=== PATIENT | male | born 1945 | race Caucasian/White ===

== ENCOUNTER 2016-09-18 12:59 | Inpatient (IN) | payer OTHER ==
[~2016-09-18] VITALS: Ht 170.2 cm; Wt 104.3 kg
[2016-09-18 13:16] VITALS: BP 156/78; PULSE 103; RESP 18; TEMP 100.7; O2SAT 96
[2016-09-18] MEDS ORDERED: NACL 0.9% 1,000 ML IV SCH (13:46)
[2016-09-18] MEDS ORDERED: VANCOMYCIN HCL 1,000 MG in D5W 250 ML IV ONE (14:00)
[2016-09-18] MEDS ORDERED: ACETAMINOPHEN 325 MG TABLET PO ONE (14:00)
[2016-09-18] MEDS ORDERED: PIPERACILLIN/TAZO 3.38 GM in D5W 50 ML IV ONE (14:00)
[2016-09-18] MEDS ORDERED: PIPERACILLIN/TAZOBACTAM 3.375 GM/VIAL (ZOSYN) IV ONE ×2 (14:18→15:05)
[2016-09-18] MEDS ORDERED: VANCOMYCIN HCL 1000 MG/VIAL IV ONE (14:19)
[2016-09-18 14:54] LABS: BASOPHILS # (AUTO) 0.2 K/uL (0.0-0.2); BASOPHILS % (AUTO) 2.5 % (0.0-2.0); EOSINOPHILS % (AUTO) 0.1 % (0.0-4.0); HEMATOCRIT 33.5 % (36-54); HEMOGLOBIN 11.2 g/dL (14.0-18.0); LYMPHOCYTES # (AUTO) 0.4 K/uL (1.0-5.5); LYMPHOCYTES % (AUTO) 6.3 % (20.5-51.5); MEAN CORPUSCULAR HEMOGLOBIN 29 pg (27-31); MEAN CORPUSCULAR HGB CONC 34 % (32-36); MEAN CORPUSCULAR VOLUME 86 fL (79.0-98.0); MONOCYTES # (AUTO) 0.6 K/uL (0.0-1.0); MONOCYTES % (AUTO) 8.3 % (1.7-9.3); NEUTROPHILS # (AUTO) 5.5 K/uL (1.8-7.7); NEUTROPHILS % (AUTO) 82.8 % (40.0-70.0); PLATELET COUNT (AUTO) 131 K/uL (130-430); RED BLOOD CELL COUNT(AUTO) 3.89 MIL/uL (4.2-6.2); RED CELL DISTRIBUTION WIDTH 15.5 % (9.0-15.0); WHITE BLOOD COUNT (AUTO) 6.7 K/uL (4.8-10.8)
[2016-09-18 14:55] LABS: PROTHROMBIN TIME 11.1 SECS (9.5-12.5)
[2016-09-18 15:04] LABS: CALCIUM 9.2 mg/dL (8.4-11.0); CREATININE 1.42 mg/dL (0.55-1.30); POTASSIUM 4.8 mmol/L (3.5-5.1)
[2016-09-18 15:09] LABS: ALBUMIN 3.8 g/dL (3.4-4.8); TOTAL BILIRUBIN 0.7 mg/dL (0.0-1.0); TOTAL PROTEIN, SERUM 7.8 g/dL (6.4-8.3)
[2016-09-18] MEDS ORDERED: D5NS 1,000 ML IV SCH (17:00)
[2016-09-18 17:07] LABS: BILIRUBIN,URINE NEGATIVE (NEGATIVE); BLOOD, URINE NEGATIVE (NEGATIVE); CLARITY/URINE CLEAR (CLEAR); COLOR,URINE YELLOW (YELLOW); GLUCOSE,URINE NEGATIVE (NEGATIVE); KETONES,URINE TRACE (NEGATIVE); LEUKOCYTE ESTERASE ,URINE NEGATIVE (NEGATIVE); NITRITE, URINE NEGATIVE (NEGATIVE); PH,URINE 5.5 (5.0-8.0); PROTEIN URINE NEGATIVE (NEGATIVE); UROBILINOGEN,URINE 0.2 (0.2-1.0)
[2016-09-18 17:21] VITALS: BP 133/68; PULSE 94; RESP 20; TEMP 98.3; O2SAT 93
[2016-09-18] MEDS ORDERED: ALBU8.5H8 INH (19:00)
[2016-09-18] MEDS ORDERED: AMLO10TA88 PO (19:00)
[2016-09-18] MEDS ORDERED: LISI40TA4 PO (19:00)
[2016-09-18] MEDS ORDERED: TERA10CA47 PO (19:00)
[2016-09-18] MEDS ORDERED: HYDR25TA4 PO (19:00)
[2016-09-18] MEDS ORDERED: METO-442 PO (19:00)
[2016-09-18] MEDS ORDERED: ALBUTEROL SULFATE 0.083% 2.5 MG/3 ML VIAL.NEB INH PRN (19:15)
[2016-09-18] MEDS ORDERED: IPRATROPIUM BROM 0.5 MG/2.5 ML VIAL.NEB (ATROVENT) INH PRN (19:15)
[2016-09-18 19:26] VITALS: BP 133/68; PULSE 94
[2016-09-18 19:40] VITALS: BP 174/118; PULSE 67; RESP 22; TEMP 99; O2SAT 96
[2016-09-18] MEDS: cefTRIAXone 1 GM IVPB PREMIX 50 ML IV SCH (20:15)
[2016-09-18] MEDS: METOPROLOL TARTRATE 50 MG TABLET PO SCH (20:15)
[2016-09-18] MEDS: LISINOPRIL 20 MG TABLET PO SCH (20:16)
[2016-09-18] MEDS ORDERED: LORazepam 2 MG/ML VIAL IVP ONE (21:15)
[2016-09-18] MEDS ORDERED: DEXTROSE 50% JECT 50 ML DISP.SYRIN IVP PRN (21:15)
[2016-09-18] MEDS: NACL 0.9% 1,000 ML IV SCH (21:32)
[2016-09-19] VITALS (8 sets, daily range): BP systolic 110–158; BP diastolic 62–79; PULSE 77–87; RESP 18–19; TEMP 98–101.4; O2SAT 92–94
[2016-09-19] MEDS: ALBUTEROL SULFATE 0.083% 2.5 MG/3 ML VIAL.NEB INH SCH ×6 (03:00→23:00)
[2016-09-19] MEDS: IPRATROPIUM BROM 0.5 MG/2.5 ML VIAL.NEB (ATROVENT) INH SCH ×6 (03:00→23:00)
[2016-09-19] MEDS ORDERED: amLODIPine BESYLATE 10 MG TABLET PO SCH (09:00)
[2016-09-19] MEDS: LISINOPRIL 20 MG TABLET PO SCH ×2 (09:34→21:00)
[2016-09-19] MEDS: HYDROCHLOROTHIAZIDE 25 MG TABLET (HCTZ) PO SCH (09:37)
[2016-09-19] MEDS: METOPROLOL TARTRATE 50 MG TABLET PO SCH ×2 (09:38→22:27)
[2016-09-19] MEDS: NACL 0.9% 1,000 ML IV SCH ×2 (09:43→19:50)
[2016-09-19 09:52] LABS: ABG TOTAL HEMOGLOBIN 11.3 G/dL (12.0-18.0); BLOOD GAS BASE EXCESS -3.8 mmol/L (-3.0-3.0); BLOOD GAS COHb% 0.4 % (0.5-1.5); BLOOD GAS HHB 8.9 % (0.0-6.0); BLOOD GAS PH 7.385 (7.350-7.450); BLOOD O2Hb% 90.3 % (94.0-97.0)
[2016-09-19] MEDS ORDERED: methylPREDNISolone SOD SUCC/PF 62.5 MG/ML VIAL IVP ONE (10:00)
[2016-09-19] MEDS ORDERED: TERAZOSIN HCL 5 MG CAPSULE (HYTRIN) PO ONE (10:00)
[2016-09-19] MEDS: OSELTAMIVIR PHOSPHATE 75 MG CAPSULE PO SCH ×2 (10:49→22:26)
[2016-09-19] MEDS ORDERED: HALOPERIDOL LACTATE 5 MG/ML VIAL IVP PRN (12:00)
[2016-09-19] MEDS ORDERED: ACETAMINOPHEN 650 MG/20.3 ML UDC GT PRN (12:00)
[2016-09-19] MEDS ORDERED: ENOXAPARIN SODIUM 30 MG/0.3 ML SYRINGE SUBCUT SCH (15:15)
[2016-09-19] MEDS ORDERED: ENOXAPARIN SODIUM 30 MG/0.3 ML SYRINGE SUBCUT ONE (15:15)
[2016-09-19] MEDS: methylPREDNISolone SOD SUCC/PF 62.5 MG/ML VIAL IVP SCH ×2 (15:36→22:28)
[2016-09-19] MEDS: cefTRIAXone 1 GM IVPB PREMIX 50 ML IV SCH (22:23)
[2016-09-19] MEDS: TERAZOSIN HCL 5 MG CAPSULE (HYTRIN) PO SCH (22:25)
[2016-09-20] VITALS (10 sets, daily range): BP systolic 102–125; BP diastolic 52–67; PULSE 70–86; RESP 16–18; TEMP 97–98; O2SAT 92–98
[2016-09-20] MEDS: INSULIN REGULAR, HUMAN 100 UNITS/ML, 10 ML VIAL (novoLIN R) SUBCUT PRN ×5 (00:38→21:10)
[2016-09-20] MEDS: ALBUTEROL SULFATE 0.083% 2.5 MG/3 ML VIAL.NEB INH SCH ×2 (03:00→09:56)
[2016-09-20] MEDS: IPRATROPIUM BROM 0.5 MG/2.5 ML VIAL.NEB (ATROVENT) INH SCH ×4 (03:00→19:35)
[2016-09-20] MEDS: methylPREDNISolone SOD SUCC/PF 62.5 MG/ML VIAL IVP SCH ×3 (05:42→21:01)
[2016-09-20 07:31] LABS: BASOPHILS % (AUTO) 0.1 % (0.0-2.0); HEMATOCRIT 29.7 % (36-54); LYMPHOCYTES # (AUTO) 0.5 K/uL (1.0-5.5); MEAN CORPUSCULAR HEMOGLOBIN 28 pg (27-31); MEAN CORPUSCULAR HGB CONC 34 % (32-36); MEAN CORPUSCULAR VOLUME 84 fL (79.0-98.0); MONOCYTES # (AUTO) 0.3 K/uL (0.0-1.0); MONOCYTES % (AUTO) 2.7 % (1.7-9.3); NEUTROPHILS # (AUTO) 11.2 K/uL (1.8-7.7); NEUTROPHILS % (AUTO) 93.2 % (40.0-70.0); PLATELET COUNT (AUTO) 137 K/uL (130-430); RED BLOOD CELL COUNT(AUTO) 3.53 MIL/uL (4.2-6.2); RED CELL DISTRIBUTION WIDTH 15.2 % (9.0-15.0)
[2016-09-20 07:39] LABS: CALCIUM 8.3 mg/dL (8.4-11.0); CREATININE 1.69 mg/dL (0.55-1.30); POTASSIUM 4.1 mmol/L (3.5-5.1)
[2016-09-20] MEDS: OSELTAMIVIR PHOSPHATE 75 MG CAPSULE PO SCH ×2 (09:41→21:00)
[2016-09-20] MEDS: METOPROLOL TARTRATE 50 MG TABLET PO SCH ×2 (09:42→20:59)
[2016-09-20] MEDS: TERAZOSIN HCL 5 MG CAPSULE (HYTRIN) PO SCH ×2 (09:42→20:58)
[2016-09-20] MEDS: LISINOPRIL 20 MG TABLET PO SCH ×2 (09:43→21:00)
[2016-09-20] MEDS: HYDROCHLOROTHIAZIDE 25 MG TABLET (HCTZ) PO SCH (09:43)
[2016-09-20] MEDS: ENOXAPARIN SODIUM 30 MG/0.3 ML SYRINGE SUBCUT SCH (09:43)
[2016-09-20] MEDS: NACL 0.9% 1,000 ML IV SCH (14:27)
[2016-09-20] MEDS: LevALBUTEROL HCL 1.25 MG/0.5 ML *CONC.* VIAL.NEB (XOPENEX CONC.) INH SCH ×2 (17:38→19:35)
[2016-09-20] MEDS: cefTRIAXone 1 GM IVPB PREMIX 50 ML IV SCH (20:56)
[2016-09-21 00:57] VITALS: BP 137/62; PULSE 91; RESP 17; TEMP 98.2; O2SAT 100
[2016-09-21] MEDS: LevALBUTEROL HCL 1.25 MG/0.5 ML *CONC.* VIAL.NEB (XOPENEX CONC.) INH SCH ×2 (01:25→07:43)
[2016-09-21] MEDS: IPRATROPIUM BROM 0.5 MG/2.5 ML VIAL.NEB (ATROVENT) INH SCH ×2 (01:25→07:42)
[2016-09-21 04:00] VITALS: BP 128/68; PULSE 79; RESP 19; TEMP 98; O2SAT 97
[2016-09-21] MEDS: NACL 0.9% 1,000 ML IV SCH (04:27)
[2016-09-21] MEDS: methylPREDNISolone SOD SUCC/PF 62.5 MG/ML VIAL IVP SCH (05:46)
[2016-09-21] MEDS: INSULIN REGULAR, HUMAN 100 UNITS/ML, 10 ML VIAL (novoLIN R) SUBCUT PRN (06:19)
[2016-09-21 08:13] LABS: CALCIUM 8.2 mg/dL (8.4-11.0); CREATININE 1.53 mg/dL (0.55-1.30); POTASSIUM 4.2 mmol/L (3.5-5.1)
[2016-09-21 08:18] VITALS: BP 134/68; PULSE 83; RESP 19; TEMP 97; O2SAT 94
[2016-09-21] MEDS: ENOXAPARIN SODIUM 30 MG/0.3 ML SYRINGE SUBCUT SCH (08:28)
[2016-09-21] MEDS: TERAZOSIN HCL 5 MG CAPSULE (HYTRIN) PO SCH (08:28)
[2016-09-21] MEDS: LISINOPRIL 20 MG TABLET PO SCH (08:29)
[2016-09-21] MEDS: METOPROLOL TARTRATE 50 MG TABLET PO SCH (08:29)
[2016-09-21] MEDS: OSELTAMIVIR PHOSPHATE 75 MG CAPSULE PO SCH (08:29)
[2016-09-21] MEDS: HYDROCHLOROTHIAZIDE 25 MG TABLET (HCTZ) PO SCH (08:30)
[2016-09-21 09:51] VITALS: BP 131/83; PULSE 83; RESP 19; TEMP 97; O2SAT 99
== END 2016-09-21 10:15 | disposition home or self-care (01) | DRG 193 ==
LOC: SED 13:33 → STU 16:32 → SMU 09-20 02:03
PROVIDERS: ADMIT Internal Medicine Hospice and Palliative Medicine; ATTEND Internal Medicine Hospice and Palliative Medicine
DX: J10.1 Influenza due to other identified influenza virus with other respiratory manifestations (principal); J96.01 Acute respiratory failure with hypoxia; G93.41 Metabolic encephalopathy; J44.1 Chronic obstructive pulmonary disease with (acute) exacerbation; F17.210 Nicotine dependence, cigarettes, uncomplicated; N18.9 Chronic kidney disease, unspecified; I12.9 Hypertensive chronic kidney disease with stage 1 through stage 4 chronic kidney disease, or unspecified chronic kidney disease; E11.22 Type 2 diabetes mellitus with diabetic chronic kidney disease; E11.51 Type 2 diabetes mellitus with diabetic peripheral angiopathy without gangrene; Z86.73 Personal history of transient ischemic attack (TIA), and cerebral infarction without residual deficits; Z79.899 Other long term (current) drug therapy
CPT/HCPCS: 36415; 36600; 70450-TC; 71010; 80048; 80053; 81003; 82803-TC; 82962; 83605; 84484; 85025; 85610-TC; 86710; 87040-TC; 87086; 93005; 93306; 94640; 94760; 96365; 96366; 96367; 97110-GP; 97116-GP; 99285; G9035; J0696; J1630; J1650; J1815; J2060; J2543; J2930; J3370; J7030; J7042; J7060

== ENCOUNTER 2018-09-08 10:07 | Emergency (ER) | payer OTHER ==
[~2018-09-08] VITALS: Ht 167.6 cm; Wt 86.2 kg
[~2018-09-08 10:07] MED LIST: ALBU8.5H8 INH; HYDR25TA4 PO; LISI40TA4 PO; METO-442 PO; TERA10CA4 PO
[2018-09-08 10:16] VITALS: BP_SYST 160
[2018-09-08] MEDS ORDERED: ONDANSETRON HCL 4 MG/2 ML VIAL IVP ONE (10:30)
[2018-09-08] MEDS ORDERED: MORPHINE 4 MG/ML INJ. SYRINGE IVP ONE (10:30)
[2018-09-08 11:03] LABS: BASOPHILS % (AUTO) 0.4 % (0.0-2.0); EOSINOPHILS # (AUTO) 0.2 K/uL (0.0-0.4); EOSINOPHILS % (AUTO) 2.3 % (0.0-4.0); HEMATOCRIT 38.5 % (36-54); HEMOGLOBIN 12.4 g/dL (14.0-18.0); LYMPHOCYTES # (AUTO) 0.8 K/uL (1.0-5.5); LYMPHOCYTES % (AUTO) 10.6 % (20.5-51.5); MEAN CORPUSCULAR HEMOGLOBIN 29 pg (27-31); MEAN CORPUSCULAR HGB CONC 32 % (32-36); MEAN CORPUSCULAR VOLUME 89 fL (79.0-98.0); MONOCYTES # (AUTO) 0.4 K/uL (0.0-1.0); MONOCYTES % (AUTO) 5.2 % (1.7-9.3); NEUTROPHILS # (AUTO) 5.8 K/uL (1.8-7.7); NEUTROPHILS % (AUTO) 81.5 % (40.0-70.0); PLATELET COUNT (AUTO) 235 K/uL (130-430); RED BLOOD CELL COUNT(AUTO) 4.34 MIL/uL (4.2-6.2); RED CELL DISTRIBUTION WIDTH 14.5 % (9.0-15.0); WHITE BLOOD COUNT (AUTO) 7.2 K/uL (4.8-10.8)
[2018-09-08 11:11] LABS: ANION GAP 8 (5-15); CALCIUM 9.3 mg/dL (8.4-11.0); CHLORIDE 102 mmol/L (98-107); CREATININE 1.13 mg/dL (0.55-1.30); GLUCOSE 274 mg/dL (70-99); POTASSIUM 3.7 mmol/L (3.5-5.1); SODIUM SERUM 139 mmol/L (136-145); UREA NITROGEN, BLOOD 18 mg/dL (8-21)
[2018-09-08 11:13] LABS: INR 0.9 (0.80-1.20); PROTHROMBIN TIME 9.5 SECS (9.5-12.5)
[2018-09-08 11:15] LABS: ALANINE AMINOTRANSFERASE 29 U/L (12-78); ALBUMIN 3.7 g/dL (3.4-4.8); AMYLASE 72 U/L (0-100); ASPARTATE AMINOTRANSFERASE 16 U/L (10-37); LIPASE 151 U/L (73-393); TOTAL BILIRUBIN 0.9 mg/dL (0.0-1.0)
[2018-09-08 13:21] VITALS: BP_SYST 133
== END 2018-09-08 13:00 | disposition home or self-care (01) ==
LOC: SED 10:07
DX: S50.01XA Contusion of right elbow, initial encounter (principal); I10 Essential (primary) hypertension; Z86.73 Personal history of transient ischemic attack (TIA), and cerebral infarction without residual deficits; Z79.899 Other long term (current) drug therapy; W01.0XXA Fall on same level from slipping, tripping and stumbling without subsequent striking against object, initial encounter; Y93.89 Activity, other specified; Y92.89 Other specified places as the place of occurrence of the external cause; Y99.8 Other external cause status
CPT/HCPCS: 36415; 73060; 73080; 80053; 83690; 82150; 84484; 85025; 85610; 85730; 93005; 96374; 96375; 99284; J2270; J2405

== ENCOUNTER 2020-01-11 19:42 | Emergency (ER) | payer OTHER ==
[~2020-01-11] VITALS: Ht 167.6 cm; Wt 81.6 kg
[2020-01-11 19:45] VITALS: BP_SYST 157
--- NOTE | 2020-01-11 19:45 | NUR ---
Patient to ER bed 6 to gown for evaluation. Side rails up. Report given to VINNY MANZANO.
--- NOTE | 2020-01-11 19:53 | NUR ---
pt in [facility], awake and alert. able to make needs known. No acute distress.
--- NOTE | 2020-01-11 19:58 | NUR ---
STERLING Siu at bedside examining patient.
--- NOTE | 2020-01-11 20:05 | NUR ---
Patient given written and verbal discharge instructions and verbalizes understanding. ER MD Dr. Mccormick discussed with patient the results and treatment provided. Patient in stable condition. ID arm band removed. Rx of Cipro opth jazmine., Flonase allergy relief nasal spray and Zyrtec Tabs. given. Patient educated on pain management and to follow up with PMD. Pain Scale 8/10. Opportunity for questions provided and answered. Medication side effect fact sheet provided.
[2020-01-11 20:07] VITALS: BP_SYST 157
== END 2020-01-11 20:07 | disposition home or self-care (01) ==
LOC: SED 19:42
DX: H10.9 Unspecified conjunctivitis (principal); J32.9 Chronic sinusitis, unspecified; I10 Essential (primary) hypertension; Z79.899 Other long term (current) drug therapy
CPT/HCPCS: 99283

== ENCOUNTER 2020-07-17 21:44 | Emergency (ER) | payer OTHER ==
[~2020-07-17] VITALS: Ht 170.2 cm; Wt 90.7 kg
[2020-07-17 21:50] VITALS: BP_SYST 155
--- NOTE | 2020-07-17 22:25 | NUR ---
STERLING Tay examining patient.
[2020-07-17] MEDS ORDERED: ONDANSETRON HCL 4 MG/2 ML VIAL IVP ONE (22:45)
[2020-07-17] MEDS ORDERED: MORPHINE 4 MG/ML INJ. SYRINGE IVP ONE (22:45)
[2020-07-17] MEDS ORDERED: INSULIN GLARGINE 100 UNITS/ML 10 ML VIAL SUBCUT ONE (23:00)
[2020-07-17 23:28] LABS: BASOPHILS # (AUTO) 0.1 K/uL (0.0-0.2); BASOPHILS % (AUTO) 0.9 % (0.0-2.0); EOSINOPHILS # (AUTO) 0.2 K/uL (0.0-0.4); EOSINOPHILS % (AUTO) 2.9 % (0.0-4.0); HEMATOCRIT 36.2 % (36-54); HEMOGLOBIN 12.2 g/dL (14.0-18.0); LYMPHOCYTES # (AUTO) 1.2 K/uL (1.0-5.5); LYMPHOCYTES % (AUTO) 13.8 % (20.5-51.5); MEAN CORPUSCULAR HEMOGLOBIN 29 pg (27-31); MEAN CORPUSCULAR HGB CONC 34 % (32-36); MEAN CORPUSCULAR VOLUME 87 fL (79.0-98.0); MONOCYTES # (AUTO) 0.7 K/uL (0.0-1.0); MONOCYTES % (AUTO) 8.4 % (1.7-9.3); NEUTROPHILS # (AUTO) 6.2 K/uL (1.8-7.7); PLATELET COUNT (AUTO) 183 K/uL (130-430); RED BLOOD CELL COUNT(AUTO) 4.18 MIL/uL (4.2-6.2); RED CELL DISTRIBUTION WIDTH 16.3 % (9.0-15.0); WHITE BLOOD COUNT (AUTO) 8.4 K/uL (4.8-10.8)
[2020-07-17 23:45] LABS: ANION GAP 2 (5-15); CALCIUM 9.2 mg/dL (8.4-11.0); CHLORIDE 102 mmol/L (98-107); CREATININE 1.13 mg/dL (0.55-1.30); GLUCOSE 219 mg/dL (70-99); POTASSIUM 4.5 mmol/L (3.5-5.1); SODIUM SERUM 134 mmol/L (136-145); UREA NITROGEN, BLOOD 22 mg/dL (8-21)
[2020-07-17 23:48] LABS: PROTHROMBIN TIME 9.9 SECS (9.5-12.5)
[2020-07-17 23:54] LABS: ALANINE AMINOTRANSFERASE 29 U/L (12-78); ALBUMIN 3.6 g/dL (3.4-4.8); ASPARTATE AMINOTRANSFERASE 13 U/L (10-37); LIPASE 201 U/L (73-393); TOTAL BILIRUBIN 0.8 mg/dL (0.0-1.0)
--- NOTE | 2020-07-18 00:45 | NUR ---
Patient to ER bed caraballo to [facility] for evaluation. Side rails up. Report given to Manuel MANZANO.
--- NOTE | 2020-07-18 00:45 | NUR ---
Received patient to ER accompanied w/ to ER w/ c/o fasting blood sugar of 160, also c/o right sided h/a 2nd to cataract surgery causing patient to have pain. Patient states that he is no pain at this time and acck noted at 195. Patient offered morphine and zofran, patient refused. Awaiting ct scan results. Patient resting quietly. No acute distress noted. Vital signs within normal range.
[2020-07-18 02:10] VITALS: BP_SYST 144
--- NOTE | 2020-07-18 02:11 | NUR ---
Patient given written and verbal discharge instructions and verbalizes understanding. ER MD discussed with patient the results and treatment provided. Patient in stable condition. ID arm band removed. Rx of given. Patient educated on pain management and to follow up with PMD. Pain Scale . Opportunity for questions provided and answered. Medication side effect fact sheet provided. per MD Baugh patient will admin lantus at home. No medications given in ER.
== END 2020-07-18 02:11 | disposition home or self-care (01) ==
LOC: SED 21:44
DX: I10 Essential (primary) hypertension (principal); E11.65 Type 2 diabetes mellitus with hyperglycemia; E11.29 Type 2 diabetes mellitus with other diabetic kidney complication; N28.9 Disorder of kidney and ureter, unspecified; R51.9 Headache, unspecified; Z86.73 Personal history of transient ischemic attack (TIA), and cerebral infarction without residual deficits; Z79.899 Other long term (current) drug therapy
CPT/HCPCS: 36415; 70450-TC; 76376; 80053; 82962; 83690-TC; 85025; 85610-TC; 99284